=== PATIENT | male | born 1975 | race Caucasian/White ===

== ENCOUNTER 2023-03-04 00:57 | Emergency (ER) | payer OTHER, SELFPAY ==
[2023-03-04 01:03] VITALS: BP 130/90; PULSE 87; RESP 18; TEMP 36.7; O2SAT 96; BMI 31.2
[2023-03-04 01:19] VITALS: PULSE 85
--- NOTE | 2023-03-04 01:20 | ECG_ITS ---
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
--- NOTE | 2023-03-04 01:27 | ED.GENADUL1 ---
HPI - General Adult General Chief complaint: Dizziness Stated complaint: HBP Time Seen by Provider: 03/04/23 01:18 Source: patient Mode of arrival: walk-in Limitations: no limitations History of Present Illness HPI narrative: cc - high BP, dizziness Patient states that this evening he developed a headache and dizziness. He checked his BP and it was elevated. He called his physician and was told to take an extra Lisinopril. He started drinking alcoholl and had four or five mixed drinks that he prepared. His headache and dizziness have improved but are still present. He denied any injury to the head or neck. No chest pain, papitations, syncope or near syncope. He told me that he felt shortness of breath earlier . No GI or symptoms. He said that he sometimes gets headaches but only when his BP is elevated. Related Data Home Medications Medication Instructions Recorded Confirmed lisdexamfetamine 40 mg capsule mg 03/04/23 (Vyvanse) lisinopril 20 mg tablet 40 mg 03/04/23 sildenafil 100 mg tablet mg 03/04/23 Allergies Allergy/AdvReac Type Severity Reaction Status Date / Time No Known Drug Allergies Allergy Verified 03/04/23 01:13 [facility] Medical History (Updated 03/04/23 @ 02:19 by [employer]) Social History Smoking status: Current every day smoker Exam Narrative Exam Narrative: Nurses notes and vital signs reviewed and patient is not hypoxic. afebrile General: Well-appearing and in no apparent distress. Skin: Warm, dry, no pallor noted. No rash. Head: Normocephalic, atraumatic. Neck: Supple, non-tender. no meningismus. No cervical lymphadenopathy. Eye: Pupils are equal, round and EOMI. No scleral icterus. Ears, Nose, Mouth, and Throat: Oral mucosa is moist, smells of alcohol Cardiovascular: Regular Rate and Rhythm without murmur, gallop or rub. Respiratory: No accessory muscle use or respiratory distress. Lungs are clear to auscultation, no wheezing, rales or rhonchi Chest Wall: no tenderness Musculoskeletal: normal ROM Neurological: A&O x4. No cranial nerve dysfunction observed. No truncal ataxia. Moves all extremities. Sensation intact. Psychiatric: Cooperative and interactive. Normal mood and affect. Constitutional Vital Signs - 24 hr 03/04/23 01:03 Temperature 98.1 F Pulse Rate [Monitor] 87 Respiratory Rate 18 Blood Pressure [Right Arm] 130/90 H Pulse Oximetry 96 Oxygen Delivery Method Room Air Course Vital Signs Vital signs: Vital Signs Temperature 98.1 F 03/04/23 01:03 Pulse Rate 87 03/04/23 01:03 Respiratory Rate 18 03/04/23 01:03 Blood Pressure 130/90 H 03/04/23 01:03 Pulse Oximetry 96 03/04/23 01:03 Oxygen Delivery Method Room Air 03/04/23 01:03 Temperature 98.1 F 03/04/23 01:03 Pulse Rate 87 03/04/23 01:03 Respiratory Rate 18 03/04/23 01:03 Blood Pressure 130/90 H 03/04/23 01:03 Pulse Oximetry 96 03/04/23 01:03 Oxygen Delivery Method Room Air 03/04/23 01:03 Medical Decision Making MDM Narrative Medical decision making narrative: Peripheral IV established and blood drawn and sent for testing. The patient received normal saline IV fluid bolus. His vital signs including blood pressure remained normal during his Emergency Department stay. He felt better after receiving a liter of normal saline IV fluid and was discharged home. His alcohol level was found to be markedly elevated so I ensured that he had a sober ride home. I encouraged him to continue to drink water as well as electrolyte solutions to stay hydrated and avoid alcohol for the next few days. Lab Data Labs: Lab Results 03/04/23 Range/Units 01:34 WBC 6.7 (4.0-11.0) 10^3/uL RBC 5.67 (4.70-6.10) 10^6/uL Hgb 17.4 (14.0-18.0) g/dL Hct 50.6 (42.0-54.0) % MCV 89.2 (80.0-94.0) fL MCH 30.7 (25.9-34.0) pg MCHC 34.4 (29.9-35.2) g/dL RDW 14.7 (11.0-15.0) % Plt Count 245 (150-450) 10^3/uL MPV 10.1 (9.5-13.5) fL Neut % (Auto) 49.2 (43.0-75.0) % Lymph % (Auto) 40.4 (20.5-60.0) % [place] % (Auto) 7.0 (1.7-12.0) % Eos % (Auto) 2.5 (0.9-7.0) % Baso % (Auto) 0.6 (0.2-2.0) % Neut # (Auto) 3.3 (1.4-6.5) 10^3/uL Lymph # (Auto) 2.7 (1.2-3.8) 10^3/uL [place] # (Auto) 0.5 (0.3-0.8) 10^3/uL Eos # (Auto) 0.2 (0.0-0.7) 10^3/uL Baso # (Auto) 0.0 (0.0-0.1) 10^3/uL Abs Immat Gran (auto) 0.02 (0.00-0.03) 10^3/uL Imm/Tot Granulo (auto) 0.3 (0.0-0.5) % Sodium 143 (136-145) mmol/L Potassium 3.6 (3.5-5.1) mmol/L Chloride 105 (98-107) mmol/L Carbon Dioxide 27.3 (21.0-32.0) mmol/L Anion Gap 14.3 BUN 8.0 (7.0-18.0) mg/dL Creatinine 0.78 (0.70-1.30) mg/dL Est GFR ( Amer) >60 (>=60) Est GFR (Non-Af Amer) >60 (>=60) BUN/Creatinine Ratio 10.3 Glucose 98 (74-106) mg/dL Calcium 9.2 (8.5-10.1) mg/dL Total Bilirubin 0.4 (0.2-1.0) mg/dL AST 23 (15-37) U/L ALT 39 (16-63) U/L Alkaline Phosphatase 81 (46-116) U/L Total Protein 7.1 (6.4-8.2) g/dL Albumin 3.7 (3.4-5.0) g/dL Globulin 3.4 g/dL Albumin/Globulin Ratio 1.1 Ethanol Quant 231 mg/dL Discharge Plan Discharge Chief Complaint: Dizziness Clinical Impression: Dizziness, Alcohol intoxication, HTN (hypertension) Patient Disposition: Home, Self-Care Time of Disposition Decision: 02:09 Prescriptions / Home Meds: No Action lisinopril 20 mg tablet 40 mg sildenafil 100 mg tablet Vyvanse 40 mg capsule Instructions: Alcohol Intoxication (ED), Chronic Hypertension (ED), Dizziness (ED) Stand Alone Forms: Portal Instructions Referrals: Physician,Non-Staff, MD [Primary Care Provider] - 1 week
[2023-03-04 01:49] LABS: Basophils Percent Auto 0.6 % (0.2-2.0); Eosinophils Absolute Auto 0.2 10^3/uL (0.0-0.7); Eosinophils Percent Auto 2.5 % (0.9-7.0); Hematocrit 50.6 % (42.0-54.0); Hemoglobin 17.4 g/dL (14.0-18.0); Immature Granulocytes Abs Auto 0.02 10^3/uL (0.00-0.03); Immature Granulocytes Pct Auto 0.3 % (0.0-0.5); Lymphocytes Absolute Auto 2.7 10^3/uL (1.2-3.8); Lymphocytes Percent Auto 40.4 % (20.5-60.0); Mean Corpuscular HGB Conc 34.4 g/dL (29.9-35.2); Mean Corpuscular Hemoglobin 30.7 pg (25.9-34.0); Mean Corpuscular Volume 89.2 fL (80.0-94.0); Mean Platelet Volume 10.1 fL (9.5-13.5); Monocytes Absolute Auto 0.5 10^3/uL (0.3-0.8); Neutrophils Absolute Auto 3.3 10^3/uL (1.4-6.5); Neutrophils Percent Auto 49.2 % (43.0-75.0); Platelet Count 245 10^3/uL (150-450); Red Blood Count 5.67 10^6/uL (4.70-6.10); Red Cell Distribution Width 14.7 % (11.0-15.0); White Blood Count 6.7 10^3/uL (4.0-11.0)
[2023-03-04 01:58] LABS: Ethanol 231 mg/dL
[2023-03-04 02:05] LABS: Alanine Aminotransferase 39 U/L (16-63); Albumin Globulin Ratio 1.1; Albumin Level 3.7 g/dL (3.4-5.0); Alkaline Phosphatase 81 U/L (46-116); Anion Gap 14.3; Aspartate Amino Transferase 23 U/L (15-37); BUN Creatinine Ratio 10.3; Bilirubin Total 0.4 mg/dL (0.2-1.0); Calcium 9.2 mg/dL (8.5-10.1); Carbon Dioxide 27.3 mmol/L (21.0-32.0); Chloride 105 mmol/L (98-107); Estimated GFR (African America >60 (>=60); Estimated GFR (Non-African Ame >60 (>=60); Globulin 3.4 g/dL; Glucose 98 mg/dL (74-106); Potassium 3.6 mmol/L (3.5-5.1); Sodium 143 mmol/L (136-145); Total Protein 7.1 g/dL (6.4-8.2)
[2023-03-04] MEDS: 0.9 % SODIUM CHLORIDE 1,000 ML 999 ML IV (02:28)
[2023-03-04] MEDS: ONDANSETRON PF 4 MG/2 ML VIAL IV (02:29)
[2023-03-04] MEDS: KETOROLAC TROMETHAMINE 30 MG/ML VIAL IVP (02:29)
== END 2023-03-04 03:02 | disposition home or self-care (01) ==
PROVIDERS: Emergency Provider Emergency Medicine
DX: R42 Dizziness and giddiness (principal); I10 Essential (primary) hypertension; F10.129 Alcohol abuse with intoxication, unspecified; Y90.7 Blood alcohol level of 200-239 mg/100 ml; Z79.899 Other long term (current) drug therapy
CPT/HCPCS: 36415; 80053; 80320; 85025; 93005; 96361; 96374; 96375; 99284